=== PATIENT | female | born 1965 | race Two or more races ===

== ENCOUNTER 2018-03-05 05:00 | Day surgery (SDC) | payer OTHER ==
[~2018-03-05 05:00] MED LIST: GABAPENTIN300 MG PO; HC PO; MICARDIS40 MG PO; [UNRECOGNIZED DRUG - OTHER] PO
[2018-03-05] MEDS ORDERED: PERCOCET 5-3251 EACH PO (10:56)
[2018-03-05] MEDS ORDERED: RECTICARE30 GM TOP (10:56)
== END 2018-03-05 19:50 | disposition home or self-care (01) ==
LOC: CIR.AMB 05:00
DX: K60.1 Chronic anal fissure (principal)